=== PATIENT | male | born 1960 ===

== ENCOUNTER 2016-07-29 19:13 | Emergency (ER) | payer MEDICAID ==
[2016-07-29 19:21] VITALS: BP 131/90; PULSE 98; RESP 20; TEMP 98.9; O2SAT 97
[2016-07-29] MEDS ORDERED: Fluorescein 1 mg Ophthalmic Strip OS ONE (21:22)
--- NOTE | 2016-07-29 21:23 | C.PDOC ---
History Of Present Illness 56 y/o male presents to ED with complaints of itchy eyes with gritty sensation since 1600 today. Pt is unsure if has foreign body. Denies blurry vision or any other complaints. Wears reading glasses. Denies contact lens use or injury. Time Seen by Provider: 07/29/16 20:32 Chief Complaint (Nursing): ENT Problem History Per: Patient History/Exam Limitations: no limitations Onset/Duration Of Symptoms: Hrs Current Symptoms Are (Timing): Still Present Injury To Eye?: No Severity: Mild Wears Contact Lens?: No Associated Symptoms: Itching. denies: Decreased Vision, FB Sensation Recent travel outside of the [place]: No Past Medical History Reviewed: Historical Data, Nursing Documentation, Vital Signs Vital Signs: Last Vital Signs Temp 98.9 F 07/29/16 19:18 Pulse 98 H 07/29/16 19:18 Resp 20 07/29/16 19:18 BP 131/90 07/29/16 19:18 Pulse Ox 97 07/29/16 21:54 Family History: States: Unknown Family Hx - Social History Hx Alcohol Use: Yes Hx Substance Use: No - Immunization History Hx Tetanus Toxoid Vaccination: No Hx Influenza Vaccination: No Hx Pneumococcal Vaccination: No Review Of Systems Except As Marked, All Systems Reviewed And Found Negative. Eyes: Positive for: Other (bilateral eye itchiness with gritty sensation). Negative for: Vision Change Physical Exam - Physical Exam Appears: Non-toxic, No Acute Distress Skin: Warm, Dry, No Rash Head: Atraumatic, Normacephalic Eye(s): bilateral: PERRL, EOMI, Other (conjunctival injection; scant discharge from left lateral eye) Nose: Normal Oral Mucosa: Moist Throat: Normal Neck: Normal ROM Lymphatic: No Adenopathy ED Course And Treatment O2 Sat by Pulse Oximetry: 97 (room air) Pulse Ox Interpretation: Normal Medical Decision Making Medical Decision Making: both eyes used fluorescein strips, no uptake noted in either eye. no fb noted. will tx for conjunctivitis. Disposition Counseled Patient/Family Regarding: Diagnosis, Need For Followup, Rx Given - Disposition Referrals: Alex Mirza MD [Staff Provider] - Disposition: HOME/ ROUTINE Disposition Time: 21:48 Condition: STABLE Additional Instructions: [place] gota en cada laci cada 6 horas. No frotar los ojos, No comparta las toallas con nadie; [place] se puede propagar fcilmente. Siga con el doctor de laci o el mdtea principal de [place] la semana prxima. 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 - Scribe Statement The provider has reviewed the documentation as recorded by the Scribe Vitaly Schuler All medical record entries made by the Scribe were at my direction and personally dictated by me. I have reviewed the chart and agree that the record accurately reflects my personal performance of the history, physical exam, medical decision making, and the department course for this patient. I have also personally directed, reviewed, and agree with the discharge instructions and disposition.
[2016-07-29] MEDS ORDERED: Fluorescein 1 mg Ophthalmic Strip ONE ×2 (21:28→21:29)
== END 2016-07-29 21:56 | disposition home or self-care (01) ==
LOC: C.ER 19:13
DX: H10.9 Unspecified conjunctivitis (principal)